=== PATIENT | female | born 1945 | race Caucasian/White ===

== ENCOUNTER → 2017-05-25 | Outpatient (CLI) | payer OTHER ==
[~2017-05-25] MED LIST: ASPIRIN PO; ATENOLOL PO; DYRENIUM100 MG PO; METFORMIN PO; NORVASC PO; SYNTHROID PO; [UNRECOGNIZED DRUG - REMARK]
--- NOTE | ~2017-05-25 | MY29 ---
[facility] A Service of [facility] & [facility] RADIOLOGY TEXT RESULTS PATIENT: GLENNA TATE LOCATION: [facility] : 47 UNIT #: [id number] AGE: [address]: Ese Jacob APRN SEX: F ORDER DR: [id number] [facility] [address] [place], [place] [address] [id number] O MR#: [id number] Acc #: [id number] NAME: GLENNA TATE : 1945 SEX: F STUDY DATE/TIME: 05/25/2017 12:38 UNIT: [facility] ROOM: STUDY DESCRIPTION: MY [facility] SCREENING W/ CAD BILAT Attending Physician: Ese Jacob A.P.R.N. Referring Physician: Ese Jacob A.P.R.N. Ordering Physician: Ese Jacob A.P.R.N. Primary Care Physician: Tremayne Tucker M.D. MEDICAL IMAGING REPORT This report is preliminary unless electronic signature is present EXAM Digital screening mammogram 05/25/2017 HISTORY 71-year-old woman positive family history, mother in her late forties. Annual screening. COMPARISON STUDIES Comparison mammograms date to 08/24/2006 with most recent 12/04/2015. FINDINGS Digital imaging of each breast was completed utilizing screening protocol. Review includes FDA-approved CAD device. Breast parenchyma is predominantly fatty replaced bilaterally. Mild subareolar duct prominence is noted on the right. Numerous calcifications are noted, although these are characteristic of dermal location. There is no suspicious mass. I see no suspicious microcalcifications and no architectural deformity. IMPRESSION Stable benign mammogram. Annual screening recommended. BIRADS: 2 Benign Finding. Patients over the age of 40 are entered into a reminder system with target due date for the next mammogram. A result letter will also be sent to the patient. Dictated by... Prateek Akins M.D. THIS IS AN ELECTRONICALLY VERIFIED REPORT Prateek Akins M.D. at 05/26/2017 8:11 AM [facility] A Service of [facility] & [facility] RADIOLOGY TEXT RESULTS PATIENT: GLENNA TATE LOCATION: [facility] : 47 UNIT #: [id number] AGE: [address]: Ese Jacob APRN SEX: F ORDER DR: Mark TD: 05/25/2017 17:51 JOB #: [id number] MEDICAL IMAGING REPORT Page 1 of 1 COPY
== END | disposition home or self-care (01) ==
LOC: CWCC 12:15
DX: Z12.31 Encounter for screening mammogram for malignant neoplasm of breast (principal); Z80.3 Family history of malignant neoplasm of breast
CPT/HCPCS: G0202